=== PATIENT | female | born 1945 | race Caucasian/White ===

== ENCOUNTER 2021-11-30 15:45 | Observation (INO) ==
[2021-11-30] MEDS ORDERED: ONDANSETRON 4 MG/2 ML VIAL IV STA (18:54)
[2021-11-30] MEDS ORDERED: PANTOPRAZOLE 40 MG VIAL IV STA (18:54)
[2021-11-30] MEDS ORDERED: SODIUM CHLORIDE 0.9% 1,000 ML IV STA (18:54)
[2021-11-30] MEDS ORDERED: HYDROmorphone 1 MG/1 ML SYRINGE IV STA (18:54)
[2021-11-30 19:45] LABS: Basophils % 0.1 % (0.0-0.8); Eosinophils % 0.1 % (0.00-10.9); Hematocrit 41.7 VOL% (35.7-47.0); Hemoglobin 13.9 GM/DL (12.0-16.0); Immature Granulocytes % 0.7 %; Immature Granulocytes Absolute 0.07 #; Lymphocytes # 0.7 10*3/uL (1.4-4.0); Lymphocytes % 6.9 % (21.3-54.2); Mean Corpuscular HGB Conc 33.3 GM/DL (32-36); Mean Corpuscular Volume 94.1 FL (87-102); Mean Platelet Volume 12.3 FL (9.6-12.0); Monocytes % 10.1 % (1.7-12.7); Neutrophils % 82.1 % (38.7-73.9); Platelet Count 208 T/CUMM (130-400); Red Blood Count 4.43 MC/CUMM (3.8-5.5); Red Cell Distribution Width 11.9 % (9.3-17.3)
[2021-11-30 19:47] LABS: Alanine Aminotransferase 440 U/L (13-56); Alkaline Phosphatase 348 U/L (45-117); Amylase 41 U/L (25-115); Aspartate Amino Transferase 541 U/L (0-37); Blood Urea Nitrogen 22 MG/DL (7-18); Calcium 10.3 MG/DL (8.5-10.1); Carbon Dioxide 23 MMOL/L (21-32); Chloride 103 MMOL/L (98-107); Glucose 142 MG/DL (74-106); Sodium 136 MMOL/L (136-145); Total Protein 7.7 G/DL (6.4-8.2)
[2021-11-30 19:57] LABS: Bilirubin,Urine Small mg/dL (Negative); Blood, Urine Negative (Negative); Glucose,Urine (UA) Negative (Negative); Ketones,Urine Negative (Negative); Nitrite,Urine Negative (Negative); Protein,Urine Negative (Negative); Urine Appearance Clear (Clear); Urine Color Yellow (Yellow); Urine Specific Gravity 1.015 (1.001-1.035); Urine pH 8.5 (4.5-8.0)
[2021-11-30 20:07] LABS: RBC,Urine 1 /HPF (0-4)
[2021-11-30] MEDS ORDERED: ACETAMINOPHEN 325 MG TABLET PO PRN (22:16)
[2021-11-30] MEDS: ENOXAPARIN 40 MG/0.4 ML SYRINGE SUBCUT SCH (23:16)
[2021-12-01] MEDS: LEVOFLOXACIN INJ 750 MG/150 ML PREMIX IV SCH ×2 (00:20→22:29)
[2021-12-01] MEDS: SODIUM CHLORIDE 0.9% 1,000 ML IV SCH ×4 (00:20→22:16)
[2021-12-01 04:54] LABS: Basophils % 0.2 % (0.0-0.8); Eosinophils % 0.5 % (0.00-10.9); Hematocrit 36.8 VOL% (35.7-47.0); Hemoglobin 12.1 GM/DL (12.0-16.0); Immature Granulocytes % 0.5 %; Immature Granulocytes Absolute 0.04 #; Lymphocytes # 1.4 10*3/uL (1.4-4.0); Lymphocytes % 16.8 % (21.3-54.2); Mean Corpuscular HGB Conc 32.9 GM/DL (32-36); Mean Corpuscular Volume 95.6 FL (87-102); Mean Platelet Volume 11.8 FL (9.6-12.0); Monocytes # 1.1 10*3/uL (0.11-0.8); Monocytes % 13.7 % (1.7-12.7); Neutrophils % 68.3 % (38.7-73.9); Platelet Count 170 T/CUMM (130-400); Red Blood Count 3.85 MC/CUMM (3.8-5.5); Red Cell Distribution Width 12.3 % (9.3-17.3)
[2021-12-01 05:20] LABS: Bilirubin,Total 2.1 MG/DL (0.20-1.00); Calcium 9.4 MG/DL (8.5-10.1); Osmolality,Calculated 281.3 MOS/KG (273-304); Potassium 4.1 MMOL/L (3.5-5.1); Risk Ratio 5.2; Total Protein 6.6 G/DL (6.4-8.2); VLDL Cholesterol 14.2 MG/DL
[2021-12-01] MEDS: LEVOTHYROXINE 25 MCG TABLET PO SCH (05:33)
[2021-12-01] MEDS: ONDANSETRON 4 MG/2 ML VIAL IV PRN ×2 (08:52→14:13)
[2021-12-01] MEDS: HYDROmorphone 1 MG/1 ML SYRINGE IV PRN ×2 (08:54→15:27)
[2021-12-01] MEDS: OMEPRAZOLE ODT 20 MG TABLET PO SCH ×2 (08:55→20:57)
[2021-12-01] MEDS: LOSARTAN 50 MG TABLET PO SCH ×2 (08:55→20:57)
[2021-12-01] MEDS: GABAPENTIN 400 MG CAPSULE PO SCH ×3 (08:56→20:57)
[2021-12-01] MEDS: MULTIVITAMIN (CENTRUM) TABLET PO SCH (08:56)
[2021-12-01] MEDS: CHOLECALCIFEROL 5,000 UNIT TABLET PO SCH (08:56)
[2021-12-01] MEDS: DOCUSATE SODIUM 100 MG CAPSULE PO SCH ×2 (08:56→20:57)
[2021-12-01] MEDS: THIAMINE 100 MG TABLET PO SCH (08:56)
[2021-12-01] MEDS ORDERED: PANTOPRAZOLE 40 MG VIAL IV SCH (09:00)
[2021-12-01] MEDS: CELECOXIB 200 MG CAPSULE PO SCH (10:19)
[2021-12-01] MEDS: predniSONE 5 MG TABLET PO SCH (10:19)
[2021-12-01] MEDS: MONTELUKAST 10 MG TABLET PO SCH (20:56)
[2021-12-01] MEDS: amLODIPine 10 MG TABLET PO SCH (20:57)
[2021-12-01] MEDS: PRAMIPEXOLE 0.25 MG TABLET PO SCH (20:57)
[2021-12-01] MEDS ORDERED: ATORVASTATIN 10 MG TABLET PO SCH (21:00)
[2021-12-01] MEDS: oxyCODONE/ACETAMINOPHEN 5-325 MG TABLET PO PRN (21:02)
[2021-12-01] MEDS: ENOXAPARIN 40 MG/0.4 ML SYRINGE SUBCUT SCH (22:28)
[2021-12-02] MEDS: ACETAMINOPHEN PO SCH ×2 (01:03→22:42)
[2021-12-02] MEDS: DIPHENHYDRAMINE PO SCH ×2 (01:03→22:42)
[2021-12-02] MEDS: LEVOTHYROXINE 25 MCG TABLET PO SCH (05:36)
[2021-12-02 05:57] LABS: Basophils % 0.4 % (0.0-0.8); Eosinophils # 0.1 10*3/uL (0.0-0.87); Eosinophils % 2.6 % (0.00-10.9); Hematocrit 38.3 VOL% (35.7-47.0); Hemoglobin 12.2 GM/DL (12.0-16.0); Immature Granulocytes % 0.4 %; Immature Granulocytes Absolute 0.02 #; Lymphocytes # 0.8 10*3/uL (1.4-4.0); Lymphocytes % 16.8 % (21.3-54.2); Mean Corpuscular HGB Conc 31.9 GM/DL (32-36); Mean Corpuscular Volume 98.5 FL (87-102); Mean Platelet Volume 11.9 FL (9.6-12.0); Monocytes # 0.7 10*3/uL (0.11-0.8); Monocytes % 14.7 % (1.7-12.7); Neutrophils % 65.1 % (38.7-73.9); Platelet Count 158 T/CUMM (130-400); Red Blood Count 3.89 MC/CUMM (3.8-5.5); Red Cell Distribution Width 12.2 % (9.3-17.3); White Blood Count 4.6 T/CUMM (4-12)
[2021-12-02 06:15] LABS: INR 1.1; PT Patient Result 11.6 SECS (10.5-12.0)
[2021-12-02] MEDS: SODIUM CHLORIDE 0.9% 1,000 ML IV SCH ×2 (06:23→21:40)
[2021-12-02 06:27] LABS: Albumin 3.1 G/DL (3.4-5.0); Calcium 9.5 MG/DL (8.5-10.1); Osmolality,Calculated 282.1 MOS/KG (273-304); Potassium 3.7 MMOL/L (3.5-5.1); Total Protein 6.9 G/DL (6.4-8.2)
[2021-12-02] MEDS: HYDROmorphone 1 MG/1 ML SYRINGE IV PRN ×2 (07:13→16:27)
[2021-12-02] MEDS ORDERED: INDOMETHACIN SUPP 50 MG SUPP RECTAL ONE (08:00)
[2021-12-02] MEDS: LACTATED RINGERS 1,000 ML IV SCH ×2 (08:46→13:07)
[2021-12-02] MEDS: CELECOXIB 200 MG CAPSULE PO SCH (10:07)
[2021-12-02] MEDS: predniSONE 5 MG TABLET PO SCH (10:08)
[2021-12-02] MEDS ORDERED: fentaNYL 100 MCG/2 ML VIAL ONE (11:09)
[2021-12-02] MEDS ORDERED: MIDAZOLAM 2 MG/2 ML VIAL ONE (11:10)
[2021-12-02] MEDS ORDERED: GLUCAGON 1 MG VIAL ONE (11:37)
[2021-12-02] MEDS ORDERED: SEVOFLURANE 1 UNIT/15 MINUTE INH ONE (12:33)
[2021-12-02] MEDS ORDERED: HYDROCORTISONE 100 MG VIAL ONE (12:34)
[2021-12-02] MEDS ORDERED: LIDOCAINE 2% 5 ML VIAL ONE (12:34)
[2021-12-02] MEDS ORDERED: SUCCINYLCHOLINE 200 MG/10 ML VIAL ONE (12:34)
[2021-12-02] MEDS ORDERED: ONDANSETRON 4 MG/2 ML VIAL ONE (12:34)
[2021-12-02] MEDS ORDERED: propofoL 200 MG/20 ML VIAL IV ONE (12:34)
[2021-12-02] MEDS: ONDANSETRON 4 MG/2 ML VIAL IV PRN (12:45)
[2021-12-02] MEDS ORDERED: PROMETHAZINE 25 MG/1 ML VIAL ONE (13:01)
[2021-12-02] MEDS ORDERED: PROMETHAZINE INJ 12.5 MG in SODIUM CHLORIDE 0.9% 50 ML IV ONE (13:08)
[2021-12-02] MEDS: MULTIVITAMIN (CENTRUM) TABLET PO SCH (14:07)
[2021-12-02] MEDS: GABAPENTIN 400 MG CAPSULE PO SCH ×3 (14:08→21:31)
[2021-12-02] MEDS: LOSARTAN 50 MG TABLET PO SCH ×2 (14:08→21:31)
[2021-12-02] MEDS: CHOLECALCIFEROL 5,000 UNIT TABLET PO SCH (14:08)
[2021-12-02] MEDS: DOCUSATE SODIUM 100 MG CAPSULE PO SCH ×2 (14:08→21:32)
[2021-12-02] MEDS: OMEPRAZOLE ODT 20 MG TABLET PO SCH ×2 (14:08→21:32)
[2021-12-02] MEDS: THIAMINE 100 MG TABLET PO SCH (14:08)
[2021-12-02] MEDS: PRAMIPEXOLE 0.25 MG TABLET PO SCH (21:31)
[2021-12-02] MEDS: MONTELUKAST 10 MG TABLET PO SCH (21:32)
[2021-12-02] MEDS: ENOXAPARIN 40 MG/0.4 ML SYRINGE SUBCUT SCH (21:32)
[2021-12-02] MEDS: amLODIPine 10 MG TABLET PO SCH (21:32)
[2021-12-02] MEDS: oxyCODONE/ACETAMINOPHEN 5-325 MG TABLET PO PRN (21:39)
[2021-12-02] MEDS: LEVOFLOXACIN INJ 750 MG/150 ML PREMIX IV SCH (22:54)
[2021-12-03 06:02] LABS: Albumin 2.8 G/DL (3.4-5.0); Bilirubin,Total 0.6 MG/DL (0.20-1.00); Calcium 9.1 MG/DL (8.5-10.1); Osmolality,Calculated 283.8 MOS/KG (273-304); Potassium 3.9 MMOL/L (3.5-5.1); Total Protein 6.4 G/DL (6.4-8.2)
[2021-12-03] MEDS: SODIUM CHLORIDE 0.9% 1,000 ML IV SCH ×3 (06:16→16:17)
[2021-12-03] MEDS: LEVOTHYROXINE 25 MCG TABLET PO SCH (06:16)
[2021-12-03] MEDS: MULTIVITAMIN (CENTRUM) TABLET PO SCH (10:19)
[2021-12-03] MEDS: DOCUSATE SODIUM 100 MG CAPSULE PO SCH (10:19)
[2021-12-03] MEDS: OMEPRAZOLE ODT 20 MG TABLET PO SCH (10:19)
[2021-12-03] MEDS: THIAMINE 100 MG TABLET PO SCH (10:19)
[2021-12-03] MEDS: GABAPENTIN 400 MG CAPSULE PO SCH ×2 (10:19→14:24)
[2021-12-03] MEDS: CHOLECALCIFEROL 5,000 UNIT TABLET PO SCH (10:20)
[2021-12-03] MEDS: LOSARTAN 50 MG TABLET PO SCH (10:20)
[2021-12-03] MEDS: oxyCODONE/ACETAMINOPHEN 5-325 MG TABLET PO PRN (10:25)
[2021-12-03] MEDS: LACTATED RINGERS 1,000 ML IV SCH (11:34)
[2021-12-03 12:10] VITALS: BP 131/62
== END 2021-12-03 16:15 | disposition home or self-care (01) ==
LOC: N.EDINP 15:45 → N.ED 15:45 → N.3E 22:28
PROVIDERS: ADMIT Internal Medicine; ATTEND Internal Medicine
PROC: ERCPWSP (ICD-10-PCS; 2021-12-02 10:35)